=== PATIENT | male | born 2000 | race Caucasian/White ===

== ENCOUNTER 2021-06-14 01:24 | Emergency (ER) | payer SELFPAY ==
[~2021-06-14] VITALS: Ht 167.6 cm; Wt 64.0 kg
[2021-06-14] MEDS ORDERED: HYDROCODONE/ACETAMINOPHEN 5/325MG TABLET PO ONE (02:15)
[2021-06-14] MEDS ORDERED: LIDOCAINE HCL 1% 20ML VIAL (Pyxis) INJ INFIL ONE (02:30)
[2021-06-14] MEDS ORDERED: TETANUS, DIPHTHERIA, PERTUSSIS VAC/PF 0.5ML (>10YR OLD) IM ONE (02:30)
[2021-06-14] MEDS ORDERED: CEFAZOLIN SODIUM 1000MG/VIAL IM ONE (02:30)
[2021-06-14] MEDS ORDERED: LIDOCAINE HCL/EPINEPHRINE 1%-EPI 1:100,000 20 ML VIAL INFIL ONE (04:00)
[2021-06-14] MEDS ORDERED: LIDOCAINE HCL/EPINEPHRINE 1%-EPI 1:100,000 10 ML VIAL INFIL NR (04:00)
[2021-06-14] MEDS ORDERED: BACITRACIN ZINC OINT UDPKT TOP ONE (04:00)
[2021-06-14] MEDS ORDERED: T3 PO (05:33)
[2021-06-14] MEDS ORDERED: AMOX-424 MT (05:33)
[2021-06-14 06:09] VITALS: BP 108/68
== END 2021-06-14 06:11 | disposition home or self-care (01) ==
LOC: ER 01:24
DX: S41.111A Laceration without foreign body of right upper arm, initial encounter (principal); X99.1XXA Assault by knife, initial encounter; Y93.89 Activity, other specified; Y92.488 Other paved roadways as the place of occurrence of the external cause
CPT/HCPCS: 90471; 90715; 96372; 99284; J0690; J3490

== ENCOUNTER 2023-12-29 11:42 | Emergency (ER) | payer OTHER ==
[~2023-12-29] VITALS: Ht 177.8 cm; Wt 66.0 kg
[~2023-12-29 11:42] MED LIST: AMOX-424 MT; T3 PO
[2023-12-29 11:43] VITALS: O2SAT 97
[2023-12-29] MEDS: LIDOCAINE HCL/PF 1% 10 MG/ML 5ML VIAL INFIL ONE (13:01)
[2023-12-29] MEDS: BACITRACIN ZINC OINT UDPKT TOP ONE (13:01)
[2023-12-29] MEDS: TETANUS, DIPHTHERIA, PERTUSSIS VAC/PF 0.5ML (>10YR OLD) IM ONE (13:02)
[2023-12-29] MEDS ORDERED: CEPH500C2 MT (14:05)
[2023-12-29 14:30] VITALS: BP 113/69; PULSE 70; RESP 16; TEMP 98.2
== END 2023-12-29 14:33 | disposition home or self-care (01) ==
LOC: ER 11:42
DX: S61.012A Laceration without foreign body of left thumb without damage to nail, initial encounter (principal); X58.XXXA Exposure to other specified factors, initial encounter; Y93.89 Activity, other specified; Y92.89 Other specified places as the place of occurrence of the external cause; Y99.8 Other external cause status
CPT/HCPCS: 73130; 90715; 12004; 90471; 99283; J3490; Z7610